=== PATIENT | male | born 1975 | race Caucasian/White ===

== ENCOUNTER 2018-05-01 17:32 | Emergency (ER) | payer OTHER ==
[~2018-05-01] VITALS: Ht 175.3 cm; Wt 91.0 kg
[~2018-05-01 17:32] MED LIST: ALB0.5UD IH; ALBU8.5H4 IH; ONDA8TAB13 PO
[2018-05-01 17:36] VITALS: BP 146/94
[2018-05-01] MEDS ORDERED: ONDA4TAB9 SL (19:20)
[2018-05-01] MEDS ORDERED: GABA300C PO (19:20)
== END 2018-05-01 19:33 | disposition home or self-care (01) ==
LOC: ER 17:32
DX: F10.10 Alcohol abuse, uncomplicated (principal); R16.0 Hepatomegaly, not elsewhere classified; J45.909 Unspecified asthma, uncomplicated; Y90.9 Presence of alcohol in blood, level not specified
CPT/HCPCS: 99283

== ENCOUNTER 2018-12-03 07:41 | Emergency (ER) | payer OTHER ==
[~2018-12-03] VITALS: Ht 175.3 cm; Wt 90.0 kg
[~2018-12-03 07:41] MED LIST changes: +GABA300C PO
[2018-12-03 07:49] VITALS: BP 148/92
[2018-12-03] MEDS ORDERED: TRAM50TA2 PO (08:16)
[2018-12-03] MEDS ORDERED: HYDROcodone/acetaminophen 5mg/325mg tablet PO ONE (08:20)
--- NOTE | 2018-12-03 08:26 | NUR ---
PT REQUESTED THAT HIS BOSS BE CALLED AND NOTIFIED THAT HE FX HIS HAND AND WOULD NOT BE INTO WORK TODAY. VINCENT FROM [facility] WAS CALLED AND NOTIFIED REQUESTED
== END 2018-12-03 09:09 | disposition home or self-care (01) ==
LOC: ER 07:42
DX: S62.305A Unspecified fracture of fourth metacarpal bone, left hand, initial encounter for closed fracture (principal); J45.909 Unspecified asthma, uncomplicated; F10.20 Alcohol dependence, uncomplicated; Z60.2 Problems related to living alone; Z79.899 Other long term (current) drug therapy; Y90.9 Presence of alcohol in blood, level not specified
CPT/HCPCS: 29125; 73130; 99284